=== PATIENT | female | born 1965 | race Caucasian/White ===

== ENCOUNTER 2019-07-03 12:57 | Emergency (ER) | payer BC ==
--- NOTE | 2019-07-03 13:33 | ED Physician Documentation ---
PD HPI LOWER EXT INJURY - Stated complaint Stated Complaint: LT ANKLE INJURY - Chief complaint Chief Complaint: Trauma Ext - History obtained from History obtained from: Patient - History of Present Illness PD HPI LOW EXT INJURY LOCATION: Left, Ankle Type of injury: Fall, Twist Where injury occurred: Home Timing - onset: Today Timing - duration: Hours (1) Timing - details: Abrupt onset Pain level now: 8 Worsened by: Moving Associated symptoms: Tingling (Top dorsum of foot), Swelling (Lateral malleolus) Contributing factors: No: Prior ortho surgery Recently seen: Not recently seen - Additional information Additional information: Is a 54-year-old woman who presents with her complains that she was w alking down her steps outside and must of missed the last step because next thing she knew her left ankle had twisted and she was on the ground on her hands and knees. She heard and felt a pop that she went down. This happened about an hour prior to presentation. She was able to get up and ambulate to the car hobbling with weight on that left ankle. She denies injury elsewhere in the fall. She did not hit her head. The pain is an 8 out of 10 she has not taken anything for it and denies prior injury to that ankle. Denies knee pain. She does complain of tingling across the top of the left foot. She works as a real estate office supervisor and is here with her . Review of Systems Skin: denies: Abrasion (s), Laceration (s) Musculoskeletal: reports: Extremity pain, Joint pain, Joint swelling, Pain with weight bearing Neurologic: denies: Numbness, Syncope, Head injury PD PAST MEDICAL HISTORY - Allergies Allergies/Adverse Reactions: Allergies Allergy/AdvReac Type Severity Reaction Status Date / Time No Known Drug Allergies Allergy Verified 07/03/19 13:00 PD ED PE NORMAL - Vitals Vital signs reviewed: Yes - General General: Alert and oriented X 3, No acute distress, Well developed/nourished - Derm Derm: Normal color, Warm and dry, No rash - Extremities Extremities: Other (There is swelling to the left ankle at the lateral malleolus. She has a 2+ dorsalis pedis pulse she is able to wiggle her toes sensation is intact light touch across the dorsal aspect of the foot. She has pain at the base the fifth metatarsal as well as the lateral malleolus. No pain at the medial malleolus. The left knee fibular head is non-tender.) Results - Vitals Vitals: Oxygen O2 Source Room air - Rads (name of study) L ankle Radiology: EMP read contemporaneously (non-displaced fracture of lat malleolus) PD MEDICAL DECISION MAKING - ED course Complexity details: reviewed results, d/w patient, d/w family ED course: Patient feels better with ice on the ankle. She is given ibuprofen. Results the x-ray were discussed with a nondisplaced lateral Malleolus fracture. She is placed in a walking boot. Weightbearing as tolerated. Continue to elevate and ice and take ibuprofen or Tylenol at home for the pain. Follow-up with her primary care provider for further management or referral to orthopedics if they desire. Departure - Departure Disposition: 01 Home, Self Care Clinical Impression: Fracture of lateral malleolus Qualifiers: Encounter type: initial encounter Fracture type: closed Fracture alignment: nondisplaced Laterality: left Qualified Code(s): S82.65XA - Nondisplaced fracture of lateral malleolus of left fibula, initial encounter for closed fracture Condition: Good Instructions: ED Boot Aircast Walker Follow-Up: your,doctor [Other] [facility] [Provider Group] Comments: Weightbearing as tolerated. Use crutches for the next several days if you are unable to put weight on the ankle. Continue to ice and elevate. You should have the walking boot on at all times when you are up and ambulating except if you need to shower. Continue with Tylenol or ibuprofen for pain. Follow-up with your primary care provider for further management. Discharge Date/Time: 07/03/19 15:05
[2019-07-03] MEDS ORDERED: IBUPROFEN 600 MG TABLET PO STA (13:46)
--- NOTE | 2019-07-03 14:33 | XRAY Report ---
Reason: left ankle injury Procedure Date: 07/03/2019 Accession Number: [id number] / [id number] Procedure: XR - Ankle 3 View LT CPT Code: FULL RESULT: EXAM: LEFT ANKLE RADIOGRAPHY EXAM DATE: 07/03/2019 02:06 PM. CLINICAL HISTORY: Left ankle injury. COMPARISON: None. TECHNIQUE: 3 views. FINDINGS: Bones: There is a hairline horizontal lucency of the inferior fibula metaphysis. Tibia appears unremarkable. Joints: Normal. No effusion. No subluxations. The ankle mortise is normally aligned. Soft Tissues: There is lateral ankle soft tissue swelling. IMPRESSION: Nondisplaced horizontal fracture of inferior fibula metaphysis with lateral soft tissue swelling. [facility]
[2019-07-03 14:51] VITALS: BP 123/71
== END 2019-07-03 15:05 | disposition home or self-care (01) ==
LOC: ED 12:57
DX: S82.62XA Displaced fracture of lateral malleolus of left fibula, initial encounter for closed fracture (principal); W10.9XXA Fall (on) (from) unspecified stairs and steps, initial encounter; X50.1XXA Overexertion from prolonged static or awkward postures, initial encounter; Y92.008 Other place in unspecified non-institutional (private) residence as the place of occurrence of the external cause
CPT/HCPCS: 73610; 99282; 99283; A9270